=== PATIENT | female | born 1990 | race Caucasian/White ===

== ENCOUNTER 2024-02-13 16:48 | Emergency (ER) | payer BC, OTHER ==
[~2024-02-13] VITALS: Ht 170.2 cm; Wt 72.0 kg
[~2024-02-13 16:48] MED LIST: PRENATA3 PO
[2024-02-13 17:15] VITALS: BP 133/95
[2024-02-13 17:31] VITALS: BP 103/70
[2024-02-13 17:45] VITALS: BP 95/61
[2024-02-13 18:18] LABS: BASO% 0.3 % (0-3); EOS% 1.3 % (0-8); HEMATOCRIT 34.5 % (37.0-47.0); HEMOGLOBIN 12.1 g/dl (12.0-16.0); IMMATURE GRANULOCYTES 0.1 % (0.0-5.0); LYMPH% 21.6 % (15-41); MEAN CELL VOLUME 86.3 fL CALC (80.0-100.0); MEAN CORPUSCULAR HGB 30.3 pG CALC (26.0-32.0); MEAN CORPUSCULAR HGB CONC 35.1 g/dL CAL (32.0-36.0); MONO% 7.4 % (2-13); NEUT# 4.88 thou/uL (2.00-7.15); NEUT% 69.3 % (42-76); RED CELL DISTRI WIDTH 13.1 % (11.5-15.5)
[2024-02-13 18:21] LABS: URINE BILIRUBIN - DIPSTICK Negative (NEGATIVE); URINE BLOOD DIPSTICK Trace-lysed (NEGATIVE); URINE COLOR Yellow; URINE GLUCOSE - DIPSTICK Negative (NEGATIVE); URINE KETONE Trace mg/dL (NEGATIVE); URINE LEUK ESTERASE Negative (NEGATIVE); URINE NITRITE - DIPSTICK Negative (Negative); URINE PROTEIN - DIPSTICK Negative (NEG-TRACE); URINE UROBILINOGEN - DIPSTICK 0.2 E.U./dL (0.2)
[2024-02-13 18:34] LABS: ALBUMIN 3.5 g/dL (3.2-5.0); BILIRUBIN, TOTAL 0.4 mg/dL (0.02-1.3); CREATININE 0.4 mg/dL (0.5-1.0); POTASSIUM 3.9 mmol/l (3.5-5.1)
[2024-02-13 19:30] VITALS: BP 95/61
[2024-02-13 19:45] VITALS: BP 104/70
[2024-02-13 20:00] VITALS: BP 103/57
== END 2024-02-13 20:27 | disposition home or self-care (01) | DRG 833 ==
LOC: ED 16:48
PROVIDERS: Family Medicine
DX: O20.0 Threatened abortion (principal); O09.522 Supervision of elderly multigravida, second trimester; O09.292 Supervision of pregnancy with other poor reproductive or obstetric history, second trimester; Z3A.21 21 weeks gestation of pregnancy